=== PATIENT | female | born 1940 | race Caucasian/White ===

== ENCOUNTER → 2017-08-17 | Outpatient (CLI) | payer MEDICARE, BC ==
[~2017-08-17] MED LIST: ALBU90OI; ASPI81EC; CETI10; FLUT110OIA; GABA100
[2017-08-19 13:59] LABS: HPV Genotype 16 Not Detected (NOTDET); HPV Genotype 18 Not Detected (NOTDET)
[2017-08-24 11:22] LABS: HPV High Risk Other Not Detected (NOTDET)
== END | disposition home or self-care (01) ==
LOC: OLS 14:58
PROVIDERS: Obstetrics & Gynecology Gynecology
DX: Z91.89 Other specified personal risk factors, not elsewhere classified (principal)
CPT/HCPCS: 87624; 88142

== ENCOUNTER 2018-01-26 12:46 | Day surgery (SDC) | payer MEDICARE, BC ==
[~2018-01-26] VITALS: Ht 160 cm; Wt 62.0 kg
== END 2018-01-26 14:35 | disposition home or self-care (01) ==
LOC: ORSCSDS 12:46
PROVIDERS: Surgery
PROC: 0DJD8ZZ Inspection of Lower Intestinal Tract, Via Natural or Artificial Opening Endoscopic (ICD-10-PCS; principal; 2018-01-26 14:00)
DX: Z12.11 Encounter for screening for malignant neoplasm of colon (principal); K57.30 Diverticulosis of large intestine without perforation or abscess without bleeding; Z86.010 Personal history of colon polyps; E78.5 Hyperlipidemia, unspecified; J44.9 Chronic obstructive pulmonary disease, unspecified; Z79.899 Other long term (current) drug therapy; Z87.891 Personal history of nicotine dependence
CPT/HCPCS: J2250; J7120

== ENCOUNTER 2018-07-14 07:16 | Day surgery (SDC) | payer MEDICARE, BC ==
[2018-07-20 12:17] LABS: Performing Lab SYMBIODX; Test Name TISSUE BLOCK
== END 2018-07-14 22:42 | disposition home or self-care (01) ==
LOC: MOI US 07:16 → MOI MAM 07:30 → MOI US 07:30
PROVIDERS: Internal Medicine
DX: C50.912 Malignant neoplasm of unspecified site of left female breast (principal)
CPT/HCPCS: 19083; 77065; 88305; 88360; A4648; G0279

== ENCOUNTER 2018-08-10 07:50 | Day surgery (SDC) | payer MEDICARE, BC ==
[~2018-08-10 07:50] MED LIST changes: -ALBU90OI; +ALBU90OI INH; +Brovana15 MCG/2 M NEB; +CALCIUM PO; +CHOL10002 PO; +Co Q-10100 MG PO; +DICLOFONO2.5 GM TOP; +Estrace Vagin42.5 GM VAG; +FLAX PO; -FLUT110OIA; +FURO20 PO; +Flovent 110 MCG12 GM; -GABA100; +GABA100 PO; +GUAI600T33 PO; +Hair, Skin & N1 EACH PO; +MAGNESIUM PO; +MIRT15ST PO; +MONT10T PO; +Omeprazole20 M1 PO; +POTASSIUM PO; +PRAV20 PO; +PROCTOSOL-HC30 GM EXT; +Ventolin5 MG/1 ML NEB
[2018-08-11] MEDS ORDERED: Flovent 110 MCG12 GM INH (10:34)
== END 2018-08-10 23:54 | disposition home or self-care (01) ==
LOC: MOI US 07:50
DX: C50.212 Malignant neoplasm of upper-inner quadrant of left female breast (principal); C50.912 Malignant neoplasm of unspecified site of left female breast
CPT/HCPCS: 19285; 77065

== ENCOUNTER 2018-08-11 08:10 | Day surgery (SDC) | payer MEDICARE, BC ==
[~2018-08-11] VITALS: Ht 157.5 cm; Wt 59.9 kg
[2018-08-11] MEDS ORDERED: Flovent 110 MCG12 GM INH (10:34)
--- NOTE | 2018-08-11 10:41 | NUR ---
Ambulatory in Day Surgery History, Chart, Medications and Allergies reviewed before start of procedure.Patient confirms NPO status and agrees with scheduled surgery. Patient reports completing Chlorhexadine shower X2 prior to admission to hospital.Surgical site prepped with 2% Chlorhexidine cloth wipe. DUONEB GIVEN PER DR. MERCEDES
--- NOTE | 2018-08-11 11:44 | NUR ---
08/11/18 1144 Alan Joseph 2GM IVPB 1104, BY DR MERCEDES
--- NOTE | 2018-08-11 12:37 | NUR ---
PT AWAKE AND ORIENTED. REPORTS PAIN ABOUT 4/10. PT GIVEN GALO MIST AND CRACKERS. TOLERATED WELL. PTS DAUGHTER BACK TO BEDSIDE. PT PROVIDED WITH PAIN MEDICATIONS PER MD ORDERS. PT HAS DRESSING D/I TO LEFT BREAST AND BREAST BINDER IN PLACE
--- NOTE | 2018-08-11 13:09 | NUR ---
Discharge instructions reviewed with patient. Patient verbalizes understanding. Copy given to patient to take home. Patient States Post-Procedure ride home has been arranged.
--- NOTE | 2018-08-11 13:14 | NUR ---
PT HOME WITH DAUGHTER. ESCORTD OUT OR DEPARTMENT VIA WHEELCHAIR.
== END 2018-08-11 13:15 | disposition home or self-care (01) ==
LOC: ORSCMMR 08:10 → RAD 08:10 → ORSCMMR 08:11 → NM 09:00 → RAD 13:15
PROVIDERS: Surgery
PROC: 0HBU0ZZ Excision of Left Breast, Open Approach (ICD-10-PCS; principal; 2018-08-11 10:45)
PROC: 07B60ZX Excision of Left Axillary Lymphatic, Open Approach, Diagnostic (ICD-10-PCS; principal; 2018-08-11 10:45)
DX: C50.212 Malignant neoplasm of upper-inner quadrant of left female breast (principal); D36.0 Benign neoplasm of lymph nodes; J44.9 Chronic obstructive pulmonary disease, unspecified; K21.9 Gastro-esophageal reflux disease without esophagitis; G62.9 Polyneuropathy, unspecified; F17.210 Nicotine dependence, cigarettes, uncomplicated; Z79.899 Other long term (current) drug therapy
CPT/HCPCS: 38792; 76098; 88307; 88342; A9520; J0690; J1100; J2250; J2405; J3010; J7120; Q9968

== ENCOUNTER → 2018-08-21 | Outpatient (CLI) | payer MEDICARE, BC ==
[~2018-08-21] MED LIST changes: +Flovent 110 MCG12 GM INH
[2018-08-21 19:11] LABS: Source, Urine Catheter
[2018-08-21 19:39] LABS: Bilirubin, Urine Neg (Neg); Blood, Urine 2+ (Neg); Glucose Qualitative, Urine Neg (Neg); Ketones, Urine Neg (Neg); Leukocyte Esterase, Urine 3+ (Neg); Nitrite, Urine Neg (Neg); Protein, Urine Neg (Neg); Specific Gravity, Urine 1.005 (1.003-1.022); Urobilinogen, Urine NORM (Normal)
[2018-08-21 19:44] LABS: Appearance, Urine Clear (Clear); Color, Urine Yellow (P-Yellow)
[2018-08-21 19:45] LABS: Bacteria Few /hpf; Red Blood Cells, Urine 0-2 /hpf (0-2); Squamous Epithelial Cells Few /hpf (Few)
[2018-08-23 14:09] LABS: HPV 16 Negative (Negative); HPV 18 Negative (Negative); HPV OTHER HR TYPES Negative (Negative)
== END | disposition home or self-care (01) ==
LOC: LAB SHORT 17:41 → LAB 17:41
PROVIDERS: Nurse Practitioner Women's Health
DX: Z12.72 Encounter for screening for malignant neoplasm of vagina (principal); R30.0 Dysuria; Z91.89 Other specified personal risk factors, not elsewhere classified
CPT/HCPCS: 81001; 87077; 87086; 87186; 87624; G0123

== ENCOUNTER → 2018-11-02 | Outpatient (CLI) | payer MEDICARE, BC | END | disposition home or self-care (01) | LOC: LAB SHORT 18:52 → LAB 18:52 | DX: R30.0 Dysuria (principal) | CPT/HCPCS: 87077; 87086; 87186 ==

== ENCOUNTER → 2019-02-01 | Outpatient (CLI) | payer MEDICARE, BC ==
[2019-02-01 18:43] LABS: Alanine Aminotransfer (ALT/SGP 26 U/L (12-78); Albumin, Blood 3.6 g/dL (3.4-5.0); Albumin/Globulin Ratio 1.3 (0.8-1.8); Alk Phos 120 U/L (50-136); Anion Gap 6 mmol/L (6-16); Aspartate Aminotrans (AST/SGOT 24 U/L (12-37); Bilirubin, Total 0.3 mg/dL (0.1-1.0); Blood Urea Nitrogen 8 mg/dL (8-24); Bun/Creatinine Ratio 12.8 (12.0-20.0); CO2, Blood 31 mmol/L (21-32); Calcium, Blood 9.2 mg/dL (8.5-10.1); Chloride, Blood 105 mmol/L (98-108); Creatinine, Blood 0.62 mg/dL (0.40-1.00); Free Thyroxine 0.81 ng/dL (0.70-1.60); Globulin, Blood 2.8 g/dL (2.2-4.0); Glomerular Filtration Rate >60 (60-); Glucose, Blood 60 mg/dL (70-99); Potassium, Blood 4.1 mmol/L (3.5-5.5); Sodium, Blood 142 mmol/L (136-145); Total Protein, Blood 6.4 g/dL (6.4-8.2)
== END | disposition home or self-care (01) ==
LOC: LAB 18:06 → LAB SHORT 18:06
PROVIDERS: Internal Medicine Hematology & Oncology
DX: R53.83 Other fatigue (principal); Z85.3 Personal history of malignant neoplasm of breast
CPT/HCPCS: 80053; 84439; 84443; 86300